=== PATIENT | male | born 1955 | race Caucasian/White ===

== ENCOUNTER 2017-11-12 06:12 | Inpatient (IN) | payer OTHER, SELFPAY ==
[2017-10-30 12:45] VITALS: BMI 31.3
[2017-11-12] VITALS (14 sets, daily range): BP systolic 111–148; BP diastolic 59–91; PULSE 65–94; RESP 10–19; TEMP 35.9–36.8; O2SAT 92–99; BMI 32.5
--- NOTE | 2017-11-12 06:00 | DI.RAD.S_ITS ---
PROCEDURE: XR PELVIS 1-2V INDICATIONS: prosthesis placement TECHNIQUE: 1 view of the lower pelvis acquired. COMPARISON: None. FINDINGS: Bones: Patient is status post right hip arthroplasty, with hardware components in expected positions. The hip joint appears congruent. The visualized bony structures appear intact. Soft tissues: Overlying postoperative changes are noted. No suspicious soft tissue densities. IMPRESSION: Right hip arthroplasty. Dictated by: Gilda Ledezma M.D. on 11/12/2017 at 9:15 Approved by: Gilda Ledezma M.D. on 11/12/2017 at 9:16
[2017-11-12] MEDS: CELECOXIB 200 MG CAPSULE PO (07:03)
[2017-11-12] MEDS: ACETAMINOPHEN 325 MG TABLET 975 MG PO (07:03)
[2017-11-12] MEDS: PREGABALIN 75 MG CAPSULE PO (07:03)
[2017-11-12] MEDS: LACTATED RINGERS 1,000 ML 42 ML IV (07:30)
--- NOTE | 2017-11-12 07:44 | PM.PREOP ---
Pre-operative Note Interval Note Pre-op Check: Yes History & Physical Reviewed by Physician Changes: No
[2017-11-12] MEDS: CEFAZOLIN 1 GM VIAL IV (08:00)
--- NOTE | 2017-11-12 08:55 | SUR.OPER ---
Lateral on padded OR bed. Gel axillary roll. Arms secured on padded armboard with pillow supporting top arm. Padded hip positioner braces x4 - anterior and posterior chest and pelvis. Additional gel pad used anterior pelvis. Gel pad under bottom leg from knee to foot and secured with tape over sheet.
[2017-11-12] MEDS: BUPIVACAINE 0.25% W/ EPI VIAL 50 ML INJ (09:03)
[2017-11-12] MEDS: LACTATED RINGERS 1,000 ML 125 ML IV ×2 (11:49→19:12)
--- NOTE | 2017-11-12 11:57 | PC.NURSE ---
Addendum entered by Rula Arguello R.N. 11/12/17 13:41: Pt denies pain, able to wiggle toes, sitting up eating lunch, no nausea. Original Note: Pt to room at 1020, alert, oriented, denies pain and nausea. Unable to wiggle toes, strong pedal pulse, cap refill WNL. Scd's on, pt oriented to room and call light. Patient reports having been diagnosed with sleep apnea but has not followed up to get a cpap. Sats on RA while awake 98% sleeping 92%, continuos pulse ox on.
--- NOTE | 2017-11-12 12:07 | P.OP_ITS ---
Operative Date/Time/Diagnoses Date of procedure: 11/12/17 Time of procedure: 09:00 Pre-op diagnosis: Right hip degenerative joint disease Post-op diagnosis: same Procedure & Clinicians Procedure: Right total hip arthroplasty (CPT code 18339 with assistance) Same procedure as scheduled: Yes Indications: Patient is an 62-year-old male with severe right hip DJD. The patient has pain with activities and at rest, limited ambulation and activity tolerance, difficulties with ADLs, and failure of conservative treatment. We have discussed the nature of condition, treatment options, risks and benefits, and patient elects to proceed with total hip arthroplasty and gives informed consent. Surgeon: Nick Bingham Plant Accountant: Gypsy Oliver Anesthesia Type: General and Spinal Operative Notes Closure Type: primary Implants & Drains: Acetabulum: Frias [employer]hew R3 acetabular component size 52 mm Femoral component: Fri[employer]hew Synergy stem size 13 with standard offset Femoral head: 36 mm + 0 Oxinium Estimated Blood Loss (mL): 100 Blood products transfused: none Procedure in detail: After satisfaction induction of anesthetic, and administration of IV antibiotics, the patient was positioned in the lateral decubitus position with all bony prominences well padded and pelvic position secured using a hip fraud examiner positioning device. Right hip and lower extremity prepped and draped in the usual sterile fashion, 1st dose of intravenous tranexamic acid was administered, then a longitudinal incision was created centered over the greater trochanter and carried sharply through the skin and subcutaneous tissues down to the fascia stas which was divided longitudinally and retracted with a Charnley retractor. External rotators visualize, cut, tagged, and retracted posteriorly, then the capsule was cut in a T-type fashion with the corners tagged and retracted. Hip was dislocated and femoral neck cut made according to preoperative templating. Acetabular retractors then placed, and the acetabular labrum and osteophytes were excised. The acetabulum was then sequentially reamed to 51 mm with an excellent circumferential ream and fit with the trial. The trial component was removed and a permanent size 52 mm Frias [employer] Nephew R3 acetabular component was selected, positioned, and impacted with satisfactory position and fixation achieved. Permanent liner was then inserted with the elevated lip directed posteriorly. Soft tissue then removed off the lateral femoral neck in the lateral neck was entered using a box osteotome. T-handled reamers placed down the canal followed by sequential broaching to 13 with the final broach left in place for trial reduction which demonstrated excellent leg length, range of motion, and stability characteristics with a 36 mm +0 trial ball. The trial and broach were removed, and a permanent size 13 Frias [employer] Nephew Synergy stem was selected and inserted with excellent position and fixation achieved. Another trial reduction yielded the above characteristics so the trial ball was exchanged for a permanent 36 mm +0 Oxinium ball. The hip was irrigated and reduced and excellent leg length range of motion and stability characteristics were achieved and maintained. The hip was copiously irrigated, and the capsule repaired with #2 Ethibond, and the piriformis was repaired back to the greater trochanter with the same. Fascia stas closed with interrupted #1 Ethibond sutures, and the subcutaneous tissues were closed in 2 layers of 0 Vicryl and 2 0 Vicryl. Skin was closed with eufemia and sterile dressings applied. Second dose of tranexamic acid was administered intravenously, and the anesthetic was terminated. Complications: none Condition: stable Disposition: PACU Plan for aftercare: Patient will be admitted to the acute care long, and anticipate discharge on postop day 1 with follow-up in office in 10-14 days. Outpatient physical therapy will be arranged and patient will continue to observe posterior hip precautions. Patient will continue use of postoperative Lovenox for 10 days postop.
--- NOTE | 2017-11-12 14:57 | CM.DANOTE ---
Discharge Planning/Care Management CM Discharge Assessment Start: 11/12/17 14:55 Freq: Status: Active Protocol: Document 11/12/17 14:55 (Rec: 11/12/17 14:57 [id number]) Discharge Planning Assessment Assigned Client Success Manager ASAF Flaherty Advance Directives? Yes Advance Directives on File No History Provided By Patient Medical Record Prior Living Arrangements House Household Members none Type of transporation used prior to Drives own vehicle admit Independent with ADL's Yes Is patient alert and oriented? Yes Patient/Family Preference OP PT Therapy Barriers to Discharge No Discharge Plan Home Transportation Arrangement Brother/Kishan will pharmacy picking tech patient and assist patient with care needs. Referrals Initiated None needed Additional Comment Patient will have the assistance of Brothers/Kishan and Azar until daughter who is a BSN/Be arrives Sunday-Sunday. Brother/Gadiel will arrive on Sunday to assist as needed. Whiteboard Updated in Patient Room with Yes name and ext. # of Client Success Manager Review Status In Process Please Provide Date Initial DC 11/12/17 Assessment Was Performed Next Review Type Continued Stay Review Patient lives alone, but has large family support to assist him with home. Patient is pending PT eval. Patient has questions on navigating basic needs. Discussed with PT the need for possible OT eval to better assist patient needs. OT eval ordered to determine possible discharge planning needs.
--- NOTE | 2017-11-12 15:51 | PT.IIE ---
Current Diagnoses Unilateral primary osteoarthritis, right hip (11/12/17) Surgery Performed Operation Date: 11/12/17 07:45 Actual Procedures p Total Hip Arthroplasty(Right) - Nick Bingham MD Surgical History (Last Updated 10/30/17 @ 13:26 by Tamika Burrell RN) History of vasectomy (Acute) Hx of meniscectomy of right knee (Acute) Medical History (Last Updated 10/31/17 @ 13:03 by Marcella Almanza RN) Degenerative joint disease (DJD) of hip (Acute) Diverticulitis (Acute) Dysplastic nevus (Acute) Enlarged prostate without lower urinary tract symptoms (luts) (Acute) GERD without esophagitis (Acute) HTN (hypertension) (Acute) Localized edema (Acute) Normal colonoscopy (Acute) Normal endoscopy (Acute) Osteoarthritis (Acute) Pain in left shoulder (Acute) Pain in right hip (Acute) Sleep apnea (Acute) Tinnitus of both ears (Acute) Trochanteric bursitis, right hip (Acute) Physical Therapy Inpatient Evaluation/Re-Eval Medical Review Prior Functional Status Medical History Reviewed Yes Diet/Fluid Consistency Regular Communication no known deficits Mobility and Gait mostly ind, had recently started using the SPC intermittently due to pain Activities of Daily Living and IADL's ind Prior Functional Level (Other details) denies falls Social History Household Members none Living Arrangements House Number of Floors (Floors) One Floor Number of Stairs To Enter/Railing? 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 Additional Social History Comment Will have various family members/friends providing initial assistance Physical Therapy Current Condition Current Condition Evaluation Date 11/12/17 Treatment Diagnosis R post MEG - impaired mobility Onset Date 11/12/17 Precautions Posterior Hip Precautions No Hip Flexion > 90 degrees No Hip Internal Rotation No Hip Adduction Weight Bearing Status Weight Bearing Status Weight Bear as Tolerated Subjective Physical Therapy Visit Type Type Initial Evaluation Visit Start Time 14:47 Visit Stop Time 15:38 Total Visit Minutes 51 Physical Therapy Visit Comments Patient Comments Pt reports doing really well, he's thrilled with the results thus far. Therapy Pain Assessment Pain When Pain Assessed At Rest Pain Present Pain Present Denied Pain PT-Bed Mobility Assessment Supine to Sit Supine to Sit Standby Assistance Scooting Scooting to Edge of Bed Standby Assistance PT-Transfer Assessment Sit to and From Stand Sit to and from Stand Standby Assistance Use of Upper Extremities Equipment Transfer Assistive Device Gait Belt Front Wheeled Walker Transfers Transfer Destination Chair Transfer Technique Stand Step Pivot Transfer Ability Level of Assist Standby Assistance Use of Upper Extremities Comments Mobility Comments Pt doen't need any physical assist with bed mobility or transfers, SBA only for reminder of hip precautions when first attempting each mobility task. Gait Assessment Gait Gait Assistance Required: Standby Assistance Distance (Feet) (feet) 75 Able to Maintain Weight Bearing Status Yes During Gait Assistive Devices Assistive Device Gait Belt Front Wheeled Walker Gait Deviations General Gait Pattern Within Normal Limits Antalgic Comments Gait Comments Pt able to take symmetrical, nearly full-length steps with minimal limping. Stair Climbing Assessment Comments Stair Climbing Comments not yet tested PT-Balance Assessment Sitting Balance and Reactions Static Sitting Balance Ability Normal Dynamic Sitting Balance Ability Normal Standing Balance and Reactions Static Standing Balance Ability Normal Dynamic Standing Balance Ability Good Orientation Orientation/Cognition Level of Alertness Alert Orientation Name Age Birthday Month Date Year Day of Week Place Situation Language Function Ability No Deficits Noted Safety Awareness Understands Safety Issues Memory Description No Deficits Noted Gross Range of Motion Lower Extremity ROM Assessment Within Functional Limits Impairments within post hip precautions Strength Upper Extremity Strength Assessment Within Functional Limits Comments Strength Comments LLE WFL, RLE grossly at least 3/5, formal MMT not performed Sensation Assessment Sensation Gross Sensation WNL Light Touch Intact Physical Therapy Treatment Exercises Exercises Ankle Pumps Gluteal Sets Quad Sets Heel Slides Supine Hip Abduction Education Education Provided Precautions Weight Bearing Status Post-Op Packet Safety PT Summary Assessment and Plan Potential Rehabilitation Potential Excellent Status of Condition at Evaluation Stable Summary Impairments Strength Bed Mobility Transfers Gait Activity Tolerance Progress Towards Goals Progressing Toward Goals Assessment Summary Pt is POD#0 for R posterior MEG. Pt is doing quite well with mobility and not needing any physical assist so far. Pt does need to use a FWW to maintain ideal gait mechanics, but is otherwise safe for discharge to home once medically ready, likely tomorrow. Pt is below reported functional baseline and will benefit from ongoing skilled acute and then home health physical therapy to optimize functional mobility and reduce fall risk. Formal family training from a PT perspective is likely not needed. Goals Bed Mobility Goal Independent Transfer Goal Independent Front Wheeled Walker Gait Goal Independent Front Wheel Walker Gait Distance 100 Days to Meet Goals 1 Frequency of Treatment Frequency Of Treatment Twice a Day Treatment Plan Physical Therapy Treatment Plan Bed Mobility Training Transfer Training Gait Training Therapeutic Exercise Balance Retraining Post Op Education Discharge Planning Hot or Cold Pack Other Recommendations and Next Treatment stair training, progress all Focus mobility, review ther ex Recommendations To Nursing Amount of Assist Needed Standby Assistance 1 Person Assist Discharge Recommendations PT Discharge Recommendations Home with Assistance Home Health Equipment Needed for Home Before needs FWW Discharge
--- NOTE | 2017-11-12 16:06 | PC.NURSE ---
PM shift pt AO, pleasant and receptive to care. PT assisted patient and ambulated hallway and room as SBA with walker. Patient denying pain and states he feels better than before surgery. Sitting up in chair. Dressing cdi, all sensations are back, no edema noted. Patient has yet to void from arriving to room at 1020. I encouraged him to drink water and that he will need to try after dinner for sure.
[2017-11-12] MEDS: CEFAZOLIN 2 GM/100 ML FROZ.PIGGY IV (17:52)
[2017-11-12] MEDS: CARVEDILOL 6.25 MG TABLET PO (20:30)
[2017-11-12] MEDS: AMLODIPINE 5 MG TABLET PO (20:30)
[2017-11-12] MEDS: ASPIRIN EC 81 MG TABLET PO (20:30)
[2017-11-12] MEDS: OXYCODONE IR 5 MG TABLET PO (23:56)
--- NOTE | 2017-11-13 00:10 | PC.NURSE ---
Addendum entered by Seda Maki R.N. 11/13/17 05:49: Able to sleep at intervals. O2 sat remaining above 92% while asleep. States pain is 4/10 this morning so medicated with Oxycodone. Fluid intake has been good so IVF stopped as per MD order. Original Note: Patient is alert and oriented. Breath sounds CTA with RA sat of 98%; on continuous pulse oximeter. HRR. Denies nausea. BT hypoactive; states he has passed a little flatus. Denies dysuria, frequency, urgency or incontinence. Able to turn self in bed. Ambulated in room with walker and SBA to bathroom and back to bed. Using pillow between legs and following hip precautions. CMS intact. Calf SCD's applied once back in bed. States pain in right hip is 4/10 so medicated with Oxycodone 5mg. Fall risk score is medium; bed alarm not necessary as patient oriented and agreeable to calling for assist when needing to get out of bed. Dressing to right hip is CDI.
[2017-11-13] MEDS: CEFAZOLIN 2 GM/100 ML FROZ.PIGGY IV (00:48)
[2017-11-13 04:12] VITALS: BP 115/75; PULSE 71; RESP 17; TEMP 36.4; O2SAT 96
[2017-11-13] MEDS: OXYCODONE IR 5 MG TABLET PO ×3 (05:36→11:58)
[2017-11-13 05:57] LABS: Hematocrit 33.8 % (41-53); Hemoglobin 12.1 g/dL (13.5-17.5)
[2017-11-13 08:00] VITALS: BP 126/82; PULSE 84; RESP 17; TEMP 36.8; O2SAT 98
[2017-11-13 08:58] VITALS: BP 126/82; PULSE 84
[2017-11-13] MEDS: CARVEDILOL 6.25 MG TABLET PO (08:58)
[2017-11-13] MEDS: ENOXAPARIN 40 MG/0.4 ML SYRINGE SUBCUT (08:59)
[2017-11-13] MEDS: PANTOPRAZOLE 20 MG TABLET PO (08:59)
[2017-11-13] MEDS: LISINOPRIL 20 MG TABLET PO (08:59)
[2017-11-13] MEDS: hydroCHLOROthiazide 12.5 MG CAPSULE PO (08:59)
--- NOTE | 2017-11-13 10:07 | PC.NURSE ---
Addendum entered by Rula Arguello R.N. 11/13/17 12:39: Went over dc meds and instructions with patient, questions answered. Pt administered own lovenox injection with correct technique. Pt taken via wc to vehicle driven by family. Pt had all belongings. Original Note: Pt given 5mg oxycodone for right hip pain 06/12. Pt up to chair with therapy. Bulky dressing to right hip removed, incision intact no redness or drainage. Placed coversite over incision, pt going to shower with OT.
--- NOTE | 2017-11-13 10:42 | OT.IP.EVAL ---
Current Diagnoses Unilateral primary osteoarthritis, right hip (11/12/17) Surgery Performed Operation Date: 11/12/17 07:45 Actual Procedures p Total Hip Arthroplasty(Right) - Nick Bingham MD Past Medical History (Last Updated 10/31/17 @ 13:03 by Marcella Almanza, ALBER) Degenerative joint disease (DJD) of hip (Acute) Diverticulitis (Acute) Dysplastic nevus (Acute) Enlarged prostate without lower urinary tract symptoms (luts) (Acute) GERD without esophagitis (Acute) HTN (hypertension) (Acute) Localized edema (Acute) Normal colonoscopy (Acute) Normal endoscopy (Acute) Osteoarthritis (Acute) Pain in left shoulder (Acute) Pain in right hip (Acute) Sleep apnea (Acute) Tinnitus of both ears (Acute) Trochanteric bursitis, right hip (Acute) Surgical History (Last Updated 10/30/17 @ 13:26 by Tamika Burrell RN) History of vasectomy (Acute) Hx of meniscectomy of right knee (Acute) Occupational Therapy Inpatient Evaluation/Re-Eval M1 PT/OT-IP Prior Functional Status Start: 11/13/17 17:06 Freq: NEEDED Status: Active Protocol: Document 11/13/17 10:42 PJM (Rec: 11/13/17 17:20 PJM [id number]) Medical Review Prior Functional Status Medical History Reviewed Yes Diet/Fluid Consistency Regular Communication no known deficits Mobility and Gait mostly ind, had recently started using the SPC intermittently due to pain Activities of Daily Living and IADL's independent with all self care, IADLS< drives; lives alone Prior Functional Level (Other details) denies falls. 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 Social History Household Members none Living Arrangements House Number of Floors (Floors) One Floor Number of Stairs To Enter/Railing? 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 M2 OT-IP Current Condition Start: 11/13/17 17:06 Freq: Status: Active Protocol: Document 11/13/17 10:42 PJM (Rec: 11/13/17 17:20 PJM [id number]) Occupational Therapy Current Condition Current Condition Evaluation Date 11/13/17 Treatment Diagnosis decreased self care, functional mobility s/p R MEG Post Operative Precautions Posterior Hip Precautions No Hip Flexion > 90 degrees No Hip Internal Rotation No Hip Adduction Weight Bearing Status Weight Bearing Status Weight Bear as Tolerated M3 OT- IP Subjective and Pain Start: 11/13/17 17:06 Freq: Status: Active Protocol: Document 11/13/17 10:42 PJM (Rec: 11/13/17 17:20 PJM [id number]) OT- Subjective Occupational Therapy Visit Type Type Initial Evaluation Visit Start Time 09:34 Visit Stop Time 10:42 Total Visit Minutes 68 Occupational Therapy Visit Comments Patient Comments I feel good today Patient/Caregiver Goals to go home today, 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 OT Pain Assessment Pain When Pain Assessed After Treatment Pain Present Pain Present Pain Reported Location Right Hip Intensity 4 Scale Used Numeric (1 - 10) Description Aching Acute Pain Behaviors Wincing Management Techniques Distraction Re-positioning Timing of Activity with Medications M4 OT- IP ADL's Start: 11/13/17 17:06 Freq: Status: Active Protocol: Document 11/13/17 10:42 PJM (Rec: 11/13/17 17:20 PJM [id number]) OT IBF-Ftbw-Avseabr General Evaluation Self-Feeding Ability Independent OT ADL-Grooming General Evaluation Grooming Ability Independent Comments OT Grooming Comments standing at sink with FWW OT ADL-Oral Care General Eval Oral Care Ability Independent Comments Oral Care Comments standing at sink with FWW OT ADL-Dressing General Eval Upper Body Dressing Ability Independent Lower Body Dressing Ability Independent Areas Needing Assistance Pull-Over Shirt Button-Up Shirt/Blouse Underpants/Brief Pants/Shorts Socks Shoes Assistive Devices Dressing Assistive Devices Long Handled Shoe Horn Broth Setter Sock Aid Comments OT Dressing Comments Provided education re: use of websphere process server developer, sock aid and long shoe horn and provided socka id and shoe horn. Pt modified indep with LB dressing after education OT ADL-Toileting General Evaluation Toileting Ability Independent Devices Toileting Assistive Devices Grab Bars Raised Toilet Seat OT ADL-Bathing Bathing Type Bathing Type Shower General Evaluation Bathing Ability Standby Assistance Areas Needing Assistance Retrieving/Setting Up Items Devices Bathing Equipment Long Handled Sponge or Data Processing Consultant Held Shower Sprayer Comments OT Bathing Comments Pt stood to shower with SBA after set up and education re: precautions. Pt's brother can assist PRN at home for first few days. M5 OT- IP IADL's Start: 11/13/17 17:06 Freq: Status: Active Protocol: Document 11/13/17 10:42 PJM (Rec: 11/13/17 17:20 PJM [id number]) OT-Instrumental Activities of Daily Living Deficits IADL Deficits Identified Deficits Home Safety Awareness Awareness of Need for Assistance at Home Good Awareness Ability to Problem Solve Emergency Able to Problem Solve Situations Medication Management Medication Management No Deficits Identified Money Management Money Management No Deficits Identified Meal Preparation Meal Preparation No Deficits Identified Meal Preparation Comments Provided education re: carrying items with FWW Commissary Production Supervisor Commissary Production Supervisor Caregiver Provides Assist Commissary Production Supervisor Comments family to assist PRN (brothers and daughter) Driving Driving Caregiver Provides Assist Driving Comments family to assist and pt to find ride service in [facility] to get to out pt P.T. appts M6 OT- IP Functional Cognition Start: 11/13/17 17:06 Freq: Status: Active Protocol: Document 11/13/17 10:42 PJM (Rec: 11/13/17 17:20 PJM [id number]) Cognitive Factors Limiting Selfcare Function Cognitive Ability Level of Alertness Alert Patient Orientation Name Age Birthday Month Date Year Day of Week Place Situation Attention Span Ability Capable of Focused Attention Capable of Sustained Attention Ability to Follow Commands Able to Follow Multi-Step Commands Memory Description No Deficits Noted Safety Awareness No Deficits Noted Problem Solving Ability No deficits Noted Executive Function Ability No Deficits Noted Abstract Thinking Ability No Deficits Noted Cognitive Comments Cognitive Assessment Comments WNL, good recall and understanding of posterio hip precautions OT- Vision and Hearing OT- Hearing Assessment OT- Hearing Assessment WFL OT- Vision Assessment Visual Acuity WFL Glasses All The Time M7 OT- IP Mobility and Balance Start: 11/13/17 17:06 Freq: Status: Active Protocol: Document 11/13/17 10:42 PJM (Rec: 11/13/17 17:20 PJ [id number]) OT-Transfer Assessment Sit to and From Stand Sit to and from Stand Independent Transfers Transfer Ability Independent Technique Transfer Destination Car Chair Shower Stall Toilet Transfer Technique Stand Step Pivot Devices Transfer Assistive Devices Gait Belt Front Wheeled Walker OT- Gait Assessment Gait Gait Assistance Required: Independent Assistive Devices Assistive Device Gait Belt Front Wheeled Walker OT- Balance Assessment Sitting Balance and Reactions Static Sitting Balance Ability Normal Dynamic Sitting Balance Ability Normal Standing Balance and Reactions Static Standing Balance Ability Good Dynamic Standing Balance Ability Good Comments Other Balance Tests/Deviations/Treatment with FWW in standing : M8 OT- IP Objective Assessments Start: 11/13/17 17:06 Freq: Status: Active Protocol: Document 11/13/17 10:42 PJM (Rec: 11/13/17 17:20 PJM [id number]) OT Gross Range of Motion Upper Extremity Range of Motion Assessment Within Functional Limits OT Strength Upper Extremity Strength Assessment Within Functional Limits OT- Coordination Assessment Comments Coordination Comments BUE WFL OT-Muscle Tone Assessment Muscle Tone WNL Yes OT Sensation Assessment Comments Summary Comments BUE WNL M9 OT- IP Assessment and Plan Start: 11/13/17 17:06 Freq: Status: Active Protocol: Document 11/13/17 10:42 PJM (Rec: 11/13/17 17:20 PJM [id number]) OT Summary Assessment and Plan Potential Rehabilitation Potential Excellent Analytic Complexity at Evaluation Low Summary Progress Towards Goals Safe For Discharge Goals Met Assessment Summary Low complexity OT assessment and all education completed today re: self care, IADL tasks within posterior hip precautions. Pt modified independent with self care in the room including standing shower after education. Pt plans to discharge home today where he will have family assist for first 4-5 days at home. Frequency of Treatment Frequency Of Treatment Discharge Treatment Plan Other Treatment Recommendations and Next No further OT services needed. Treatment Focus Discharge Recommendations OT Discharge Recommendations Home with Assistance Home Equipment Needs provided sock aid and long shoe horn
--- NOTE | 2017-11-13 12:03 | CM.DPC ---
DCP/continued: Reviewed chart. Received notification that patient will be medically stable for discharge today. Met with patient explained CM/SW role. Patient reports that he plans to follow up with outpatient therapy at [facility] in [place]. Patient has first appointment scheduled for 11-19-17. Patient has support and denies any d/c planning needs. RN confirms the above. P: Home today. ASAF Saha
--- NOTE | 2017-11-13 12:07 | PT.IPTN ---
Current Diagnoses Unilateral primary osteoarthritis, right hip (11/12/17) Surgery Performed Operation Date: 11/12/17 07:45 Actual Procedures p Total Hip Arthroplasty(Right) - Nick Bingham MD Physical Therapy Treatment Note Physical Therapy Current Condition Current Condition Evaluation Date 11/12/17 Treatment Diagnosis R post MEG - impaired mobility Onset Date 11/12/17 Precautions Posterior Hip Precautions No Hip Flexion > 90 degrees No Hip Internal Rotation No Hip Adduction Weight Bearing Status Weight Bearing Status Weight Bear as Tolerated Subjective Physical Therapy Visit Type Type Treatment Note Visit Start Time 11:00 Visit Stop Time 11:40 Total Visit Minutes 40 Physical Therapy Visit Comments Patient Comments Pt feels very confident, looking forward to going home today. Therapy Pain Assessment Pain When Pain Assessed At Rest Pain Present Pain Present Pain Reported Location Right Hip Intensity 3 PT-Bed Mobility Assessment Supine to Sit Supine to Sit Independent Sit to Supine Sit to Supine Independent Scooting Scooting to Edge of Bed Independent PT-Transfer Assessment Sit to and From Stand Sit to and from Stand Independent Use of Upper Extremities Equipment Transfer Assistive Device Front Wheeled Walker Comments Mobility Comments Pt is ind to mod ind with FWW for all mobility. Gait Assessment Gait Gait Assistance Required: Independent Distance (Feet) (feet) 150 Assistive Devices Assistive Device Front Wheeled Walker Gait Deviations General Gait Pattern Within Normal Limits Comments Gait Comments Pt able to walk without any gait abnormalities, just a little slower than normal. Stair Climbing Assessment Evaluation Level of Assist On Stairs Independent Devices Stair Climbing Assistive Devices Left Railing Technique/Endurance Stair Climbing Direction Ascend and Descend Stair Climbing Technique Step to Step Comments Stair Climbing Comments very stable on the stairs, also able to do a single step/ curb with walker without difficulty. PT-Balance Assessment Sitting Balance and Reactions Static Sitting Balance Ability Normal Dynamic Sitting Balance Ability Normal Standing Balance and Reactions Static Standing Balance Ability Normal Dynamic Standing Balance Ability Good Device Used FWW Orientation Orientation/Cognition Level of Alertness Alert Orientation Name Age Birthday Month Date Year Day of Week Place Situation Language Function Ability No Deficits Noted Safety Awareness Understands Safety Issues Memory Description No Deficits Noted Gross Range of Motion Lower Extremity ROM Assessment Within Functional Limits Impairments within post hip precautions Strength Upper Extremity Strength Assessment Within Functional Limits Comments Strength Comments LLE WFL, RLE grossly at least 3/5, formal MMT not performed Sensation Assessment Sensation Gross Sensation WNL Light Touch Intact Physical Therapy Treatment Exercises Exercises Ankle Pumps Gluteal Sets Quad Sets Heel Slides Supine Hip Abduction Education Education Provided Precautions Weight Bearing Status Post-Op Packet Safety Other Treatments Other Treatment Performed Also instructed pt in a standing L hamstring stretch and a seated torso rotation stretch PT Summary Assessment and Plan Potential Rehabilitation Potential Excellent Status of Condition at Evaluation Stable Summary Progress Towards Goals Safe For Discharge Goals Met Assessment Summary Pt is POD#1 and is doing extremely well with his mobility. Pt is ind to mod ind with all mobility and has reached all of his acute therapy goals. Pt is safe to discharge home today and continue with PT once there. Acute PT will sign off. Goals Bed Mobility Goal Independent Transfer Goal Independent Front Wheeled Walker Gait Goal Independent Front Wheel Walker Gait Distance 100 Days to Meet Goals 1 Frequency of Treatment Frequency Of Treatment Discharge Recommendations To Nursing Amount of Assist Needed Independent Discharge Recommendations PT Discharge Recommendations Home with Assistance Home Health Outpatient PT
--- NOTE | 2017-11-13 13:37 | P.DS_ITS ---
History of Present Illness Date Patient Seen: 11/13/17 Time Patient Seen: 07:35 Chief complaint: [id number] RIGHT TOTAL HIP ARTHROPLASTY Narrative: Details of the patient's H&P can be found in the electronic chart. Discharge Providers Date of admission: 11/12/17 06:12 Primary care physician: Elyse Merchant PA-C Consults: 11/12/17 10:29 Consult to Discharge Planning Routine Comment: Consult to Physical Therapy Evaluate & Treat Comment: Physician Instructions: post op MEG protocol Consult to Respiratory Therapy Evaluate & Treat Comment: Physician Instructions: Evaluate and treat 11/12/17 10:48 Consult to Respiratory Therapy Evaluate & Treat Comment: patient has JARAD and does not use CPAP Physician Instructions: Evaluate and treat 11/12/17 15:01 Consult to Occupational Therapy Evaluate & Treat Comment: Physician Instructions: Evaluate and treat Discharge provider: Cassandra Moon PA-C Summary Discharge Diagnosis: Right hip osteoarthritis Hospital Course: patient was admitted taken operating room he had a right total hip arthroplasty by Dr. Bingham. He recovered well as transient the floor for further care. Postop day 1 patient's pain was under control, patient was eating and drinking well, urinating without difficulty, and ambulating well. He was ready to be discharged home. Patient is a [facility] patient and was given a prescription for his discharge pain medication, [place] 5mg at his pre-op visit. He was discharged home with a prescription for Lovenox to take for 9 days and Vistaril as needed for muscle spasms. He will follow up in the office on Sunday for his 1st postoperative visit. Status at Discharge Cognitive/behavioral status at discharge: alert orient x3 Functional status at discharge: uses cane/walker Overall status at discharge: patient is progressing back to baseline Time Spent with Patient Less than 30 minutes Exam Vital Signs (past 8 hours): - 11/13/17 08:00 11/13/17 08:58 Temperature 98.3 F Pulse Rate 84 84 Respiratory Rate 17 Blood Pressure 126/82 126/82 Pulse Oximetry 98 Oxygen Delivery Method Room Air Oxygen Flow Rate 0 Narrative Exam Narrative: Patient standing at hospital room sink with walker. appears comfortable. Alert orient x3. Right hip dressing clean dry intact. Some swelling and right anterior thigh. Bilateral calves soft and nontender. Neuro and vascular status intact. Objective Labs Result Diagrams: 11/13/17 05:21 Labs: Laboratory Results - last 24 hr 11/13/17 05:21 Hgb 12.1 L Hct 33.8 L Discharge Plan Discharge Plan Patient Disposition: Home Discharge comment: Start PT. Take Lovenox for 9 days. Afterwards, go back on daily dose of aspirin 81mg. Discharge Med Rec/Prescriptions Prescriptions: New oxycodone 5 mg Tablet 5 mg PO Q4H PRN (Reason: Pain, Moderate (4-6)) Qty: 60 RF: 0 enoxaparin [Lovenox] 40 mg/0.4 mL Syringe 40 mg subcut DAILY 9 Days Qty: 9 RF: 0 hydroxyzine pamoate 25 mg Capsule 25 mg PO Q6HR PRN (Reason: Muscle Spasm) Qty: 40 RF: 0 Continue celecoxib 200 mg Capsule 200 mg PO BID RF: 0 carvedilol [Coreg] 6.25 mg Tablet 6.25 mg PO BID RF: 0 lisinopril-hydrochlorothiazide 20-12.5 mg Tablet 1 tab PO DAILY RF: 0 acetaminophen 500 mg Tablet 1,000 mg PO Q4H PRN (Reason: pain) RF: 0 amlodipine 10 mg Tablet 5 mg PO BEDTIME RF: 0 omeprazole 20 mg Capsule,Delayed Release(Dr/Ec) 20 mg PO DAILY RF: 0 omega 9-yvy-stx-fish oil [Fish Oil] 1,000 mg (120 mg-180 mg) Capsule 1,000 mg PO DAILY RF: 0 Discontinued aspirin [Aspir-81] 81 mg Tablet,Delayed Release (Dr/Ec) 81 mg PO DAILY RF: 0 Follow up/Referrals: Nick Bingham MD [Physician] - (F/U at scheduled visit. Contact office with any questions or concerns.) Elyse Merchant PA-C [Primary Care Provider] - (follow up with your primary care provider ) Provider Discharge Instructions Diet: Diet as Tolerated Activity: As tolerated. Posterior hip precautions. Ambulate with walker/cane. Cold/Heat Therapy: Apply ice as needed for pain and swelling. Other treatments: Take lovenox for 9 days, afterwards go back on daily dose of aspirin 81mg. Skin/Wound/Dressing Care Report to your healthcare provider any signs of infection, such as:: chills, fever, increased pain and unusual drainage Dressing: Keep dressing intact. Visit Report/Discharge Packet Instructions: DI for Hip Replacement, Enoxaparin Injection, Oxycodone Visit Report Forms: Stroke Signs & Symptoms Discharge Data Primary Care Provider: Elyse Merchant Attending Provider: Nick Bingham Admit Date/Time: 11/12/17 06:12 Discharges patient from system. Discharge Date/Time: 11/13/17 12:40 Quality VTE Deep Vein Thrombosis/Pulmonary Embolism Present on Admission: No
== END 2017-11-13 12:40 | disposition home or self-care (01) | DRG 470 ==
PROVIDERS: Admitting Provider Orthopaedic Surgery; PCP Physician Assistant; Visit Provider Orthopaedic Surgery
PROC: 0SR90JZ Replacement of Right Hip Joint with Synthetic Substitute, Open Approach (ICD-10-PCS; CPT 27130; principal; 2017-11-12 07:45)
DX: M16.11 Unilateral primary osteoarthritis, right hip (principal); I10 Essential (primary) hypertension; K21.9 Gastro-esophageal reflux disease without esophagitis; R60.0 Localized edema; G47.33 Obstructive sleep apnea (adult) (pediatric)
CPT/HCPCS: 36415; 72170; 85014; 85018; 97110; 97116; 97161; 97165; 97535; C1776; J0690; J1100; J1650; J2250; J2274; J2405; J2704; J3010

== ENCOUNTER → 2018-01-01 11:10 | Outpatient (REF) | payer OTHER, SELFPAY ==
[2017-11-12 10:37] VITALS: BMI 32.5
[2018-01-01 11:23] LABS: Add Manual Diff / Slide Review NO; Basophils Percent Auto 0.7 % (0-2); Eosinophils Percent Auto 0.6 % (2-4); Hematocrit 32.9 % (41-53); Hemoglobin 11.3 g/dL (13.5-17.5); Lymphocytes Percent Auto 12.4 % (25-40); Mean Corpuscular HGB Conc 34.2 % (30-36); Mean Corpuscular Hemoglobin 30.9 PG (26-34); Mean Corpuscular Volume 90.2 fL (80-100); Monocytes Percent Auto 5.4 % (3-14); Neutrophils Absolute Auto 12500 /uL (3000-5900); Neutrophils Percent Auto 80.9 % (50-75); Platelet Count 577 X10^3/uL (150-400); Red Blood Cell Count 3.65 X10^6/uL (4.5-5.9); Red Cell Distribution Width 13.8 % (11.6-14.8); White Blood Cell Count 15.5 X10^3/uL (4.5-11.0)
[2018-01-01 11:31] LABS: Alanine Aminotransferase 91 IU/L (21-72); Albumin 3.6 g/dL (3.5-5.0); Albumin Globulin Ratio 1.2 (1.0-2.8); Alkaline Phosphatase 271 U/L (38-126); Aspartate Aminotransferase 47 IU/L (17-59); BUN Creatinine Ratio 23.5 (6-22); Bilirubin Total 0.6 mg/dL (0.2-1.3); Blood Urea Nitrogen 40 mg/dL (9-20); Calcium 8.8 mg/dL (8.4-10.2); Carbon Dioxide 20 mmol/L (22-32); Chloride 97 mmol/L (98-107); Cholesterol 175 mg/dL (140-199); Globulin 3.1 g/dL (1.7-4.1); Glucose 107 mg/dL (80-110); HDL Cholesterol 16 mg/dL (40-60); HEMOLYSIS < 15 (0-50); LDL Cholesterol Calculated 128 mg/dL (<100); Potassium 3.5 mmol/L (3.4-5.1); Sodium 138 mmol/L (137-145); Total Protein 6.7 g/dL (6.3-8.2); Triglycerides 155 mg/dL (35-150)
[2018-01-01 11:36] LABS: Hemoglobin A1C% w Est Avg Glu 5.8 % (4.0-6.0)
== END ==
LOC: LAB 11:10
PROVIDERS: PCP Physician Assistant; Visit Provider Physician Assistant
DX: I10 Essential (primary) hypertension (principal); G47.30 Sleep apnea, unspecified; R60.0 Localized edema; R10.11 Right upper quadrant pain
CPT/HCPCS: 80053; 80061; 83036; 85025

== ENCOUNTER → 2018-01-01 11:58 | Outpatient (CLI) | payer OTHER, SELFPAY ==
[2017-11-12 10:37] VITALS: BMI 32.5
--- NOTE | 2018-01-01 | DI.CT.S_ITS ---
PROCEDURE: CT ABDOMEN W CON INDICATIONS: RIGHT UPPER QUADRANT PAIN TECHNIQUE: After the administration of oral and intravenous contrast, 5 mm thick sections acquired from the diaphragms to the iliac crests. 5 mm thick coronal and sagittal reformats were acquired. For radiation dose reduction, the following was used: automated exposure control, adjustment of mA and/or kV according to patient size. COMPARISON: [facility], US, US ABDOMEN COMPLETE, 12/21/2017, 20:56. FINDINGS: Image quality: Small infiltrate/atelectasis in posterior medial aspect of right lung base is seen. Left basilar atelectasis is also noted. Lung bases: Lung bases are clear. Heart size is enlarged, no pericardial effusion. Solid organs: Liver is normal in size. Heterogeneous contrast enhancement of liver is seen. There are multiple hypodense areas seen scattered in left and right hepatic lobe predominately involving left hepatic lobe with largest hypodense area measures 5.9 x 4.4 x 4.4 cm in its largest AP, transverse, and craniocaudal dimensions involving medial segment of right hepatic lobe. This area measures 9 Hounsfield unit density. There is adjacent fat stranding in anterior right upper abdomen. Subtle tiny 3-4 mm hypodensity involving posterior segment of right hepatic lobe is seen and is too small to characterize. 2.2 cm hypodense area is seen involving posterior aspect of medial segment left hepatic lobe adjacent to gallbladder fossa. 1.8 cm hypodense area is seen involving lateral segment of left hepatic lobe. There is no intrahepatic biliary ductal dilatation. Gallbladder is distended with gallbladder wall thickening and pericholecystic inflammatory changes. No gross calcified gallstone is seen. Possible sludge material is noted in dependent portion of gallbladder lumen. No common bile duct dilatation is seen. Pancreas enhances normally. Spleen is normal in size. 1 cm hypodense area is seen in posterior periphery of the spleen, and may represent a small splenic cyst. No adrenal nodules. Kidneys are normal in size, without hydronephrosis. 2.8 cm right renal cyst is seen. Peritoneum and bowel: Contrast enhanced bowel loops appear normal in caliber. No free fluid or air. Nodes and vessels: No retroperitoneal or mesenteric adenopathy by size criteria. Aorta and inferior vena cava are normal in size. Bones: No suspicious bony lesions. No vertebral body compression fractures. Miscellaneous: Umbilical hernia is seen containing fat only. IMPRESSION: 1. Multiple fairly well-defined hypodensities scattered in liver parenchyma as described above. The largest collection is seen in left hepatic lobe medial segment with adjacent inflammatory changes. This structure measures fluid density. Finding is concerning for possible abscess collection in the liver parenchyma. Smaller fluid density structure in the left hepatic lobe adjacent to gallbladder fossa the and is also concerning for small abscess collection. Well-circumscribed fluid density structure in left hepatic lobe lateral segment is more consistent with a hepatic cyst. 2. Thickened gallbladder wall with pericholecystic inflammatory changes. Sludge material within gallbladder lumen. Cholecystitis is suspected. No gross biliary ductal dilatation. 3. No bowel obstruction. No peritoneal free fluid or free air. 4. Right basilar small infiltrate/atelectasis. Left basilar atelectasis. Dictated by: Tree Kemp M.D. on 01/01/2018 at 13:47 Approved by: Tree Kemp M.D. on 01/01/2018 at 14:06
== END ==
PROVIDERS: PCP Physician Assistant; Visit Provider Physician Assistant
DX: K82.8 Other specified diseases of gallbladder (principal); R10.11 Right upper quadrant pain; J98.11 Atelectasis; N28.1 Cyst of kidney, acquired
CPT/HCPCS: 74160; 80053; 80061; 83036; 85025; Q9967

== ENCOUNTER 2018-01-01 16:20 | Emergency (ER) | payer OTHER, SELFPAY ==
[2017-11-12 10:37] VITALS: BMI 32.5
[2018-01-01 16:27] VITALS: BP 102/69; PULSE 70; RESP 16; TEMP 36.4; O2SAT 95
[2018-01-01 19:25] LABS: Add Manual Diff / Slide Review NO; Basophils Percent Auto 0.6 % (0-2); Eosinophils Percent Auto 1.1 % (2-4); Hematocrit 34.8 % (41-53); Hemoglobin 11.6 g/dL (13.5-17.5); Lymphocytes Percent Auto 17.3 % (25-40); Mean Corpuscular HGB Conc 33.4 % (30-36); Mean Corpuscular Hemoglobin 30.3 PG (26-34); Mean Corpuscular Volume 90.6 fL (80-100); Monocytes Percent Auto 6.7 % (3-14); Neutrophils Absolute Auto 10000 /uL (3000-5900); Neutrophils Percent Auto 74.3 % (50-75); Platelet Count 538 X10^3/uL (150-400); Red Blood Cell Count 3.84 X10^6/uL (4.5-5.9); Red Cell Distribution Width 13.9 % (11.6-14.8); White Blood Cell Count 13.4 X10^3/uL (4.5-11.0)
[2018-01-01 19:31] LABS: INR 1.5 (0.9-1.3)
[2018-01-01 19:33] LABS: PTT Partial Thromboplastin Tim 29 SECONDS (26.4-36.2)
[2018-01-01 19:35] LABS: Lactate (Lactic Acid) 0.7 mmol/L (0.7-2.1)
[2018-01-01 19:36] LABS: Alanine Aminotransferase 85 IU/L (21-72); Albumin Globulin Ratio 1.1 (1.0-2.8); Alkaline Phosphatase 257 U/L (38-126); Aspartate Aminotransferase 48 IU/L (17-59); Bilirubin Total 0.6 mg/dL (0.2-1.3); Blood Urea Nitrogen 44 mg/dL (9-20); Calcium 9.1 mg/dL (8.4-10.2); Carbon Dioxide 21 mmol/L (22-32); Chloride 93 mmol/L (98-107); Globulin 3.7 g/dL (1.7-4.1); Glucose 89 mg/dL (80-110); HEMOLYSIS < 15 (0-50); Potassium 3.1 mmol/L (3.4-5.1); Sodium 132 mmol/L (137-145); Total Protein 7.7 g/dL (6.3-8.2)
[2018-01-01 19:54] VITALS: BP 103/64; PULSE 68; RESP 16; O2SAT 95
[2018-01-01] MEDS: SODIUM CHLORIDE 0.9% 500 ML 1000 ML IV (20:01)
[2018-01-01] MEDS: PIPERACILLIN-TAZO 3.375 GM/50 ML FROZ.PIGGY IV (20:29)
[2018-01-01 20:39] VITALS: BP 110/71; PULSE 71; RESP 18; O2SAT 96
[2018-01-01 21:30] VITALS: BP 114/59; PULSE 76; RESP 18; O2SAT 96
[2018-01-01 22:27] VITALS: BP 112/67; PULSE 73; RESP 18; O2SAT 95
--- NOTE | 2018-01-01 23:18 | ED.ABDPAIN ---
HPI - Abdominal Pain <JEREMIAH Jimenez-BC - Last Filed: 01/01/18 23:26> General Chief Complaint: Abdominal Pain Stated Complaint: SENT BY Andres MERCHANT Time Seen by Provider: 01/01/18 18:47 Source: patient Mode of arrival: ambulatory Limitations: no limitations History of Present Illness HPI narrative: Patient is a 62-year-old male with history of hypertension who was sent here by his primary care provider for concern of a liver abscess. Patient states that he has had worsening GERD, right upper quadrant pain and fullness that started about a week ago. He complains of chills and shakes but denies any fevers nausea vomiting or diarrhea. He states he does not have any pain in the emergency department. Related Data Home Medications Medication Instructions Recorded Confirmed amlodipine 5 mg PO BID 10/30/17 01/01/18 carvedilol [Coreg] 6.25 mg PO BID 10/30/17 01/01/18 celecoxib 200 mg PO BID 10/30/17 01/01/18 lisinopril-hydrochlorothiazide 1 tab PO DAILY 10/30/17 01/01/18 aspirin [Aspirin Low Dose] 81 mg PO DAILY 01/01/18 01/01/18 pantoprazole 1 tab PO DAILY 01/01/18 01/01/18 sucralfate 1 tab PO QID 01/01/18 01/01/18 Allergies Allergy/AdvReac Type Severity Reaction Status Date / Time cat dander Allergy Unknown Itchy, Verified 11/12/17 06:45 Sneezy Review of Systems <JEREMIAH Jimenez- - Last Filed: 01/01/18 23:26> Review of Systems GENERAL: See HPI HEENT: Denies sinus pain, ear pain, sore throat, difficulty swallowing, dizziness. RESPIRATORY: Denies dyspnea, cough, wheezing, hemoptysis, sputum. CARDIOVASCULAR: Denies chest pain, palpitations, orthopnea, edema, GASTROINTESTINAL: see HPI : Denies dysuria, frequency, incontinence, hematuria, urinary retention. MUSCULOSKELETAL: denies weakness, joint pain, or bony pain SKIN: Denies rash, skin lesions, or other NEUROLOGIC: Denies weakness, headache, numbness, change in speech, confusion, seizures, incoordination. PSYCHIATRIC: No concerning psychosocial issues. 12 point review of systems is negative except for those stated above Exam <JEREMIAH Jimenez-BC - Last Filed: 01/01/18 23:26> Narrative Exam Narrative: GENERAL: This is a well-nourished, well-developed patient, no acute distress HEAD: Atraumatic. Normocephalic. No temporal or scalp tenderness. EYES: Pupils equal round and reactive. Extraocular motions intact. No scleral icterus. No injection or drainage. ENT: Nose without bleeding, purulent drainage or septal hematoma. Throat without erythema, tonsillar hypertrophy or exudate. Uvula midline. Airway patent. NECK: Trachea midline. No JVD or lymphadenopathy. Supple, nontender, no meningeal signs. CARDIOVASCULAR: Regular rate and rhythm without murmurs, gallops, or rubs. RESPIRATORY: Clear to auscultation. Breath sounds equal bilaterally. No wheezes, rales, or rhonchi. No cough or increased respiratory effort in the emergency department. GASTROINTESTINAL: Abdomen soft, right upper quadrant tenderness to palpation, nondistended. no palpable pulsatile mass or palpable masses. No guarding. active bowel sounds all 4 quadrants. EXTREMITIES: No clubbing, cyanosis, or edema. No joint tenderness, effusion, or edema noted. BACK: Nontender without deformity or crepitance. No flank tenderness. NEURO: AOx3. SKIN: No rash or erythema. Initial Vital Signs Initial Vital Signs: Vital Signs Temperature 97.5 F L 01/01/18 16:27 Pulse Rate 70 01/01/18 16:27 Respiratory Rate 16 01/01/18 16:27 Blood Pressure 102/69 01/01/18 16:27 Pulse Oximetry 95 01/01/18 16:27 <Jayleen Zazueta DO - Last Filed: 01/02/18 06:00> Initial Vital Signs Initial Vital Signs: Vital Signs Temperature 97.5 F L 01/01/18 16:27 Pulse Rate 70 01/01/18 16:27 Respiratory Rate 16 01/01/18 16:27 Blood Pressure 102/69 01/01/18 16:27 Pulse Oximetry 95 01/01/18 16:27 Course <JEREMIAH Jimenez-BC - Last Filed: 01/01/18 23:26> Course Narrative: I checked on the patient all times throughout his stay in the emergency department. Orders Ordered: Discontinued Medications Sodium Chloride (Normal Saline 0.9%) 500 mls @ 1,000 mls/hr IV BOLUS ONE Stop: 01/01/18 19:55 Last Infusion: 01/01/18 21:09 Dose: 0 mls/hr Admin: 01/01/18 20:01 Dose: 1,000 mls/hr Piperacillin/Tazobactam/Dextrose (Zosyn) 3.375 gm in 50 mls @ 100 mls/hr IV NOW ONE Stop: 01/01/18 20:12 Last Infusion: 01/01/18 20:56 Dose: 0 mls/hr Admin: 01/01/18 20:29 Dose: 100 mls/hr Consultations Consultation #1: I spoke with Dr. Barrett from [facility], as the patient requested to be transferred to [facility]. I also previously spoke with Dr. Oneal, stated the patient needed to be referred outside of [facility] for interventional radiology. Dr. Barrett kindly accepted the patient [facility]. He denied any further needs or orders at this point time and stated accordance with Zosyn IV. Time: 21:00 Vital Signs - 8 hr 01/01/18 22:27 Pulse Rate 73 Respiratory Rate 18 Blood Pressure [Left Arm] 112/67 Pulse Oximetry 95 <Jayleen Zazueta DO - Last Filed: 01/02/18 06:00> Orders Ordered: Discontinued Medications Sodium Chloride (Normal Saline 0.9%) 500 mls @ 1,000 mls/hr IV BOLUS ONE Stop: 01/01/18 19:55 Last Infusion: 01/01/18 21:09 Dose: 0 mls/hr Admin: 01/01/18 20:01 Dose: 1,000 mls/hr Piperacillin/Tazobactam/Dextrose (Zosyn) 3.375 gm in 50 mls @ 100 mls/hr IV NOW ONE Stop: 01/01/18 20:12 Last Infusion: 01/01/18 20:56 Dose: 0 mls/hr Admin: 01/01/18 20:29 Dose: 100 mls/hr Vital Signs - 8 hr 01/01/18 22:27 Pulse Rate 73 Respiratory Rate 18 Blood Pressure [Left Arm] 112/67 Pulse Oximetry 95 MDM - Abdominal Pain <MANJIT Jimenez - Last Filed: 01/01/18 23:26> Lab Data Result diagrams: 01/01/18 18:55 10/30/18 18:55 Lab Results 01/01/18 01/01/18 01/01/18 Range/Units 18:55 18:55 18:55 WBC 13.4 H (4.5-11.0) X10^3/uL RBC 3.84 L (4.5-5.9) X10^6/uL Hgb 11.6 L (13.5-17.5) g/dL Hct 34.8 L (41-53) % MCV 90.6 (80-100) fL MCH 30.3 (26-34) PG MCHC 33.4 (30-36) % RDW 13.9 (11.6-14.8) % Plt Count 538 H (150-400) X10^3/uL Neut % (Auto) 74.3 (50-75) % Lymph % (Auto) 17.3 L (25-40) % Ray % (Auto) 6.7 (3-14) % Eos % (Auto) 1.1 L (2-4) % Baso % (Auto) 0.6 (0-2) % Neut # (Auto) 63729 H (0689-0511) /uL PT 16.0 H (10.1-12.7) SECONDS INR 1.5 H (0.9-1.3) APTT 29 (26.4-36.2) SECONDS Sodium 132 L (137-145) mmol/L Potassium 3.1 L (3.4-5.1) mmol/L Chloride 93 L (98-107) mmol/L Carbon Dioxide 21 L (22-32) mmol/L BUN 44 H (9-20) mg/dL Creatinine 2.00 H (0.66-1.25) mg/dL Estimated GFR 34.0 L (>60) mL/min BUN/Creatinine Ratio 22.0 (6-22) Glucose 89 (80-110) mg/dL Lactate (0.7-2.1) mmol/L Calcium 9.1 (8.4-10.2) mg/dL Total Bilirubin 0.6 (0.2-1.3) mg/dL AST 48 (17-59) IU/L ALT 85 H (21-72) IU/L Alkaline Phosphatase 257 H (38-126) U/L Total Protein 7.7 (6.3-8.2) g/dL Albumin 4.0 (3.5-5.0) g/dL Globulin 3.7 (1.7-4.1) g/dL Albumin/Globulin Ratio 1.1 (1.0-2.8) 01/01/18 Range/Units 18:55 WBC (4.5-11.0) X10^3/uL RBC (4.5-5.9) X10^6/uL Hgb (13.5-17.5) g/dL Hct (41-53) % MCV (80-100) fL MCH (26-34) PG MCHC (30-36) % RDW (11.6-14.8) % Plt Count (150-400) X10^3/uL Neut % (Auto) (50-75) % Lymph % (Auto) (25-40) % Ray % (Auto) (3-14) % Eos % (Auto) (2-4) % Baso % (Auto) (0-2) % Neut # (Auto) (1365-2573) /uL PT (10.1-12.7) SECONDS INR (0.9-1.3) APTT (26.4-36.2) SECONDS Sodium (137-145) mmol/L Potassium (3.4-5.1) mmol/L Chloride (98-107) mmol/L Carbon Dioxide (22-32) mmol/L BUN (9-20) mg/dL Creatinine (0.66-1.25) mg/dL Estimated GFR (>60) mL/min BUN/Creatinine Ratio (6-22) Glucose (80-110) mg/dL Lactate 0.7 (0.7-2.1) mmol/L Calcium (8.4-10.2) mg/dL Total Bilirubin (0.2-1.3) mg/dL AST (17-59) IU/L ALT (21-72) IU/L Alkaline Phosphatase (38-126) U/L Total Protein (6.3-8.2) g/dL Albumin (3.5-5.0) g/dL Globulin (1.7-4.1) g/dL Albumin/Globulin Ratio (1.0-2.8) Point of care testing: Urine Dip Bedside Urine Glucose Negative Bedside Urine Bilirubin - Negative Bedside Urine Ketone - Negative Urine Specific [place] 1.010 Bedside Urine Occult Blood - Negative Bedside Urine pH 6.0 Bedside Urine Protein - Negative Bedside Urine Urobilinogen - Negative Bedside Urine Nitrite - Negative Bedside Urine Leukocytes - Negative Esterase Imaging Data CT scan - abdomen: Radiologist's impression: [address] [address] [address] Scan Report Signed Patient: Roderick Barton PMR#: [id number] : 6Acct:[id number] Age/Sex: 62 / MDate of Service: 01/01/18 Loc: CT Accession Number: [id number] Procedure: CT abdomen w con Ordering Provider: Elyse Merchant P.A-C PROCEDURE: CT ABDOMEN W CON INDICATIONS: RIGHT UPPER QUADRANT PAIN TECHNIQUE: After the administration of oral and intravenous contrast, 5 mm thick sections acquired from the diaphragms to the iliac crests. 5 mm thick coronal and sagittal reformats were acquired. For radiation dose reduction, the following was used: automated exposure control, adjustment of mA and/or kV according to patient size. COMPARISON: [facility], US, US ABDOMEN COMPLETE, 12/21/2017, 20:56. FINDINGS: Image quality: Small infiltrate/atelectasis in posterior medial aspect of right lung base is seen. Left basilar atelectasis is also noted. Lung bases: Lung bases are clear. Heart size is enlarged, no pericardial effusion. Solid organs: Liver is normal in size. Heterogeneous contrast enhancement of liver is seen. There are multiple hypodense areas seen scattered in left and right hepatic lobe predominately involving left hepatic lobe with largest hypodense area measures 5.9 x 4.4 x 4.4 cm in its largest AP, transverse, and craniocaudal dimensions involving medial segment of right hepatic lobe. This area measures 9 Hounsfield unit density. There is adjacent fat stranding in anterior right upper abdomen. Subtle tiny 3-4 mm hypodensity involving posterior segment of right hepatic lobe is seen and is too small to characterize. 2.2 cm hypodense area is seen involving posterior aspect of medial segment left hepatic lobe adjacent to gallbladder fossa. 1.8 cm hypodense area is seen involving lateral segment of left hepatic lobe. There is no intrahepatic biliary ductal dilatation. Gallbladder is distended with gallbladder wall thickening and pericholecystic inflammatory changes. No gross calcified gallstone is seen. Possible sludge material is noted in dependent portion of gallbladder lumen. No common bile duct dilatation is seen. Pancreas enhances normally. Spleen is normal in size. 1 cm hypodense area is seen in posterior periphery of the spleen, and may represent a small splenic cyst. No adrenal nodules. Kidneys are normal in size, without hydronephrosis. 2.8 cm right renal cyst is seen. Peritoneum and bowel: Contrast enhanced bowel loops appear normal in caliber. No free fluid or air. Nodes and vessels: No retroperitoneal or mesenteric adenopathy by size criteria. Aorta and inferior vena cava are normal in size. Bones: No suspicious bony lesions. No vertebral body compression fractures. Miscellaneous: Umbilical hernia is seen containing fat only. IMPRESSION: 1. Multiple fairly well-defined hypodensities scattered in liver parenchyma as described above. The largest collection is seen in left hepatic lobe medial segment with adjacent inflammatory changes. This structure measures fluid density. Finding is concerning for possible abscess collection in the liver parenchyma. Smaller fluid density structure in the left hepatic lobe adjacent to gallbladder fossa the and is also concerning for small abscess collection. Well-circumscribed fluid density structure in left hepatic lobe lateral segment is more consistent with a hepatic cyst. 2. Thickened gallbladder wall with pericholecystic inflammatory changes. Sludge material within gallbladder lumen. Cholecystitis is suspected. No gross biliary ductal dilatation. 3. No bowel obstruction. No peritoneal free fluid or free air. 4. Right basilar small infiltrate/atelectasis. Left basilar atelectasis. Dictated by: Tree Kemp M.D. on 01/01/2018 at 13:47 Approved by: Tree Kemp M.D. on 01/01/2018 at 14:06 [facility] Narrative Medical decision making narrative: Patient is a 62-year-old male who presents with a liver abscess on CT. After Dr. Oneal recommended transferring the patient, Dr. Barrett from [facility] kindly accepted. The patient was transferred by EMS. He was hemodynamically stable throughout stay in the emergency department, declined pain and nausea medications during his stay. He was given IVF as well as Zosyn. He had no questions or concerns upon transfer. <Jayleen Zazueta DO - Last Filed: 01/02/18 06:00> Lab Data Lab Results 01/01/18 01/01/18 01/01/18 Range/Units 18:55 18:55 18:55 WBC 13.4 H (4.5-11.0) X10^3/uL RBC 3.84 L (4.5-5.9) X10^6/uL Hgb 11.6 L (13.5-17.5) g/dL Hct 34.8 L (41-53) % MCV 90.6 (80-100) fL MCH 30.3 (26-34) PG MCHC 33.4 (30-36) % RDW 13.9 (11.6-14.8) % Plt Count 538 H (150-400) X10^3/uL Neut % (Auto) 74.3 (50-75) % Lymph % (Auto) 17.3 L (25-40) % Ray % (Auto) 6.7 (3-14) % Eos % (Auto) 1.1 L (2-4) % Baso % (Auto) 0.6 (0-2) % Neut # (Auto) 20232 H (9358-1103) /uL PT 16.0 H (10.1-12.7) SECONDS INR 1.5 H (0.9-1.3) APTT 29 (26.4-36.2) SECONDS Sodium 132 L (137-145) mmol/L Potassium 3.1 L (3.4-5.1) mmol/L Chloride 93 L (98-107) mmol/L Carbon Dioxide 21 L (22-32) mmol/L BUN 44 H (9-20) mg/dL Creatinine 2.00 H (0.66-1.25) mg/dL Estimated GFR 34.0 L (>60) mL/min BUN/Creatinine Ratio 22.0 (6-22) Glucose 89 (80-110) mg/dL Lactate (0.7-2.1) mmol/L Calcium 9.1 (8.4-10.2) mg/dL Total Bilirubin 0.6 (0.2-1.3) mg/dL AST 48 (17-59) IU/L ALT 85 H (21-72) IU/L Alkaline Phosphatase 257 H (38-126) U/L Total Protein 7.7 (6.3-8.2) g/dL Albumin 4.0 (3.5-5.0) g/dL Globulin 3.7 (1.7-4.1) g/dL Albumin/Globulin Ratio 1.1 (1.0-2.8) 01/01/18 Range/Units 18:55 WBC (4.5-11.0) X10^3/uL RBC (4.5-5.9) X10^6/uL Hgb (13.5-17.5) g/dL Hct (41-53) % MCV (80-100) fL MCH (26-34) PG MCHC (30-36) % RDW (11.6-14.8) % Plt Count (150-400) X10^3/uL Neut % (Auto) (50-75) % Lymph % (Auto) (25-40) % Ray % (Auto) (3-14) % Eos % (Auto) (2-4) % Baso % (Auto) (0-2) % Neut # (Auto) (6918-9368) /uL PT (10.1-12.7) SECONDS INR (0.9-1.3) APTT (26.4-36.2) SECONDS Sodium (137-145) mmol/L Potassium (3.4-5.1) mmol/L Chloride (98-107) mmol/L Carbon Dioxide (22-32) mmol/L BUN (9-20) mg/dL Creatinine (0.66-1.25) mg/dL Estimated GFR (>60) mL/min BUN/Creatinine Ratio (6-22) Glucose (80-110) mg/dL Lactate 0.7 (0.7-2.1) mmol/L Calcium (8.4-10.2) mg/dL Total Bilirubin (0.2-1.3) mg/dL AST (17-59) IU/L ALT (21-72) IU/L Alkaline Phosphatase (38-126) U/L Total Protein (6.3-8.2) g/dL Albumin (3.5-5.0) g/dL Globulin (1.7-4.1) g/dL Albumin/Globulin Ratio (1.0-2.8) Point of care testing: Urine Dip Bedside Urine Glucose Negative Bedside Urine Bilirubin - Negative Bedside Urine Ketone - Negative Urine Specific [place] 1.010 Bedside Urine Occult Blood - Negative Bedside Urine pH 6.0 Bedside Urine Protein - Negative Bedside Urine Urobilinogen - Negative Bedside Urine Nitrite - Negative Bedside Urine Leukocytes - Negative Esterase Discharge Plan Departure Patient Disposition: [facility] Clinical Impression: Abscess of liver Discharge Date/Time: 01/01/18 23:15 Interventions: ED Discharge Assessment Last Done: 01/01/18 23:13 Prescriptions: No Action celecoxib 200 mg Capsule 200 mg PO BID RF: 0 carvedilol [Coreg] 6.25 mg Tablet 6.25 mg PO BID RF: 0 lisinopril-hydrochlorothiazide 20-12.5 mg Tablet 1 tab PO DAILY RF: 0 amlodipine 10 mg Tablet 5 mg PO BID RF: 0 sucralfate 1 gram tablet 1 tab PO QID RF: 0 aspirin [Aspirin Low Dose] 81 mg Tablet,Delayed Release (Dr/Ec) 81 mg PO DAILY RF: 0 pantoprazole 40 mg tablet,delayed release (DR/EC) 1 tab PO DAILY RF: 0 <Jayleen Zazueta DO - Last Filed: 01/02/18 06:00> Cosign ED Attending Desirae Attestation: I was immediately available in the department for consultation. Documentation has been reviewed. I agree with assessment and plan.
== END 2018-01-01 23:15 | disposition short-term general hospital (02) ==
PROVIDERS: Emergency Medicine; Emergency Provider Nurse Practitioner Family; Family Provider Physician Assistant; PCP Physician Assistant
DX: K82.8 Other specified diseases of gallbladder (principal); R10.11 Right upper quadrant pain; J98.11 Atelectasis; N28.1 Cyst of kidney, acquired; R10.9 Unspecified abdominal pain; K75.0 Abscess of liver; I10 Essential (primary) hypertension; G47.30 Sleep apnea, unspecified; R60.0 Localized edema
CPT/HCPCS: 36591; 74160; 80053; 80061; 81003; 83036; 83605; 85025; 85610; 85730; 87040; 96361; 96365; 99283; 99284; J2543; Q9967